=== PATIENT | male | born 1970 | race African-American/Black ===

== ENCOUNTER 2016-10-24 15:49 | Emergency (ER) | payer MEDICAID ==
[~2016-10-24] VITALS: Ht 180.3 cm; Wt 77.1 kg
[2016-10-24 17:11] VITALS: BP 138/70
--- NOTE | 2016-10-24 19:07 | NUR ---
Patient ambulated to [facility] with family to be evaluated by Dr. Fernandes.
--- NOTE | 2016-10-24 19:09 | NUR ---
Dr. Fernandes evaluating patient in [facility].
[2016-10-24] MEDS ORDERED: ALBUTEROL SULFATE/IPRATROPIU 3 ML SOL IH ONE (19:10)
[2016-10-24 19:22] LABS: HEMATOCRIT 43.5 % (36-52); HEMOGLOBIN 14.2 g/dL (12.0-18.0); MEAN CORPUSCULAR HEMOGLOBIN 28 pg (27-31); MEAN CORPUSCULAR HGB CONC 33 g/dL (33-37); MEAN CORPUSCULAR VOLUME 86 fL (80-94); PLATELET COUNT (AUTO) 377 K/uL (140-450); RED BLOOD CELL COUNT(AUTO) 5.08 MIL/uL (4.20-6.10); RED CELL DISTRIBUTION WIDTH 14.8 % (11.6-13.7); WHITE BLOOD COUNT (AUTO) 16.8 K/uL (4.8-10.8)
[2016-10-24 19:34] LABS: ANION GAP 9.2 (8-16); CARBON DIOXIDE 30.9 mmol/L (21-32); POTASSIUM 4.1 mmol/L (3.5-5.1)
[2016-10-24 19:40] LABS: ALBUMIN 3.4 g/dL (3.4-5.0); EOSINOPHILS % (MANUAL) 12 % (0-4); LYMPHOCYTES % (MANUAL) 15 % (20-46); MONOCYTES % (MANUAL) 2 % (5-12); TOTAL BILIRUBIN 0.2 mg/dL (0.0-1.0)
[2016-10-24] MEDS ORDERED: methylPREDNISolone SS 125 MG/2 ML VIAL IM ONE (19:40)
[2016-10-24 20:23] VITALS: BP 148/92
--- NOTE | 2016-10-24 20:23 | NUR ---
Patient discharged with v/s stable. Written and verbal after care instructions given and explained. Patient alert, oriented and verbalized understanding of instructions. Ambulatory with steady gait. All questions addressed prior to discharge. ID band removed. Patient advised to follow up with PMD. Rx of prednisone 20mg, tessalone 100mg tid given. Patient educated on indication of medication including possible reaction and side effects. Opportunity to ask questions provided and answered.
== END 2016-10-24 20:23 | disposition home or self-care (01) ==
LOC: MED 15:49
DX: J18.9 Pneumonia, unspecified organism (principal); J44.1 Chronic obstructive pulmonary disease with (acute) exacerbation; F17.210 Nicotine dependence, cigarettes, uncomplicated
CPT/HCPCS: 36415; 71010; 80053; 85025; 85379; 94640; 94760; 96372; 99285; J2930; J7620

== ENCOUNTER 2017-03-19 09:31 | Emergency (ER) | payer MEDICAID, MEDICARE ==
[~2017-03-19] VITALS: Ht 180.3 cm; Wt 77.3 kg
[2017-03-19 09:37] VITALS: BP 115/61
--- NOTE | 2017-03-19 09:54 | NUR ---
ER MD AT BEDSIDE FOR EXAM
--- NOTE | 2017-03-19 10:05 | NUR ---
RECEIVED PT IN OF 1, PT REPORTS INTERMITTENT COUGH X 1 MONTH, PROGREASSIVELY GETTING WORSE. [id number]-AFN-EVDYAE PHGLEM PER PT. DENIES CP OR SOB, ONLYPAIN WITH COUGH. DENIES FEVERS, BUT OCCASIONAL CHILLS. RESP EVEN AND UNLABORED, ON RA@99%-LS-CLEAR SHALINI.
--- NOTE | 2017-03-19 10:37 | NUR ---
Patient discharged with v/s stable. Written and verbal after care instructions given and explained. Patient alert, oriented and verbalized understanding of instructions. Ambulatory with steady gait. All questions addressed prior to discharge. ID band removed. Patient advised to follow up with PMD. Rx of PREDNISONE, AZITHRONMYCIN, ALBUTEROL given. Patient educated on indication of medication including possible reaction and side effects. Opportunity to ask questions provided and answered.
== END 2017-03-19 10:37 | disposition home or self-care (01) ==
LOC: MED 09:31
DX: J18.9 Pneumonia, unspecified organism (principal); J45.909 Unspecified asthma, uncomplicated; F17.210 Nicotine dependence, cigarettes, uncomplicated
CPT/HCPCS: 71046; 99284; Q0092

== ENCOUNTER 2017-08-18 08:48 | Emergency (ER) | payer OTHER, MEDICARE ==
[~2017-08-18] VITALS: Ht 180.3 cm; Wt 86.2 kg
--- NOTE | 2017-08-18 08:54 | NUR ---
PT AMBULATES TO BED 9
[2017-08-18 08:58] VITALS: BP 121/83
[2017-08-18 09:39] VITALS: BP 121/83
--- NOTE | 2017-08-18 09:40 | NUR ---
Patient discharged with v/s stable. Written and verbal after care instructions given and explained. Patient alert, oriented and verbalized understanding of instructions. Ambulatory with steady gait. All questions addressed prior to discharge. ID band removed. Patient advised to follow up with PMD. Rx of bactrim/keflex/motrin/norco given. Patient educated on indication of medication including possible reaction and side effects. Opportunity to ask questions provided and answered.
== END 2017-08-18 09:40 | disposition home or self-care (01) ==
LOC: MED 08:48
DX: L05.01 Pilonidal cyst with abscess (principal); J45.909 Unspecified asthma, uncomplicated
CPT/HCPCS: 99283

== ENCOUNTER 2019-01-18 09:39 | Emergency (ER) | payer OTHER, BC ==
[~2019-01-18] VITALS: Ht 180.3 cm; Wt 80.8 kg
[2019-01-18 09:46] VITALS: BP 123/94
--- NOTE | 2019-01-18 09:50 | NUR ---
PT AMBULATED TO LOBBY AT THIS TIME, VSS
--- NOTE | 2019-01-18 10:20 | NUR ---
C/O COUGH, CHEST TIGHTNESS, AND BODY ACHES X1 WEEK. BILAT UPPER LOBES CTA, BILAT LOWER BASES DIMISHED/COARSE. O2 SAT RA 94%. BREATHING UNLABORED. MOIST COUGH PRESENT AT THIS TIME. PT ALSO C/O NON PAINFUL MOBILE RAISED LUMP TO BACK OF L SIDE OF NECK THAT HE HAS HAD FOR 10 YEARS BUT STATES IT HAS RECENTLY INCREASED IN SIZE. STATES HE WAS TOLD IT WAS "NON CANCEROUS FATTY TISSUE". AT BEDSIDE. PT PLACED ON BEDSIDE CAR GROOMER. BED IN LOW POSITION. SIDE RAIL UP X1.
[2019-01-18] MEDS: ALBUTEROL SULFATE/IPRATROPIU 3 ML SOL IH ONE ×2 (11:25→12:09)
[2019-01-18 11:40] LABS: HEMATOCRIT 45.3 % (36-52); HEMOGLOBIN 14.8 g/dL (12.0-18.0); MEAN CORPUSCULAR HEMOGLOBIN 29 pg (27-31); MEAN CORPUSCULAR HGB CONC 33 g/dL (33-37); MEAN CORPUSCULAR VOLUME 88.7 fL (80-94); PLATELET COUNT (AUTO) 318 K/uL (140-450); RED BLOOD CELL COUNT(AUTO) 5.11 MIL/uL (4.20-6.10); RED CELL DISTRIBUTION WIDTH 13.3 % (11.6-13.7); WHITE BLOOD COUNT (AUTO) 14.1 K/uL (4.8-10.8)
--- NOTE | 2019-01-18 11:41 | NUR ---
Dr. Fernandes is evaluating the patient at bedside.
[2019-01-18 11:46] LABS: ANION GAP 14.2 (8-16); CARBON DIOXIDE 24.7 mmol/L (21-32); POTASSIUM 3.9 mmol/L (3.5-5.1)
[2019-01-18] MEDS: LEVOFLOXACIN 750 MG/D5W PREMIX 150 ML IV ONE (11:48)
[2019-01-18] MEDS: NACL 0.9% 1,000 ML IV ONE (11:49)
[2019-01-18 11:51] LABS: ALBUMIN 3.5 g/dL (3.4-5.0); TOTAL BILIRUBIN 0.3 mg/dL (0.0-1.0)
[2019-01-18 12:05] LABS: LYMPHOCYTES % (MANUAL) 8 % (20-46); MONOCYTES % (MANUAL) 6 % (5-12)
[2019-01-18 12:06] LABS: BASOPHILS % (MANUAL) 0 % (0-2); EOSINOPHILS % (MANUAL) 26 % (0-4)
--- NOTE | 2019-01-18 12:10 | NUR ---
PT PLACED ON 2LPM NC FOR O2 SAT 90% RA
[2019-01-18] MEDS: methylPREDNISolone SS 125 MG/2 ML VIAL IVP ONE (12:14)
--- NOTE | 2019-01-18 12:18 | NUR ---
Secondary breathing treatment administered by respiratory therapist at bedside.
--- NOTE | 2019-01-18 12:39 | NUR ---
PT WAITING FOR ABX AND IV FLUIDS TO FINISH RUNNING AND THEN WILL BE D/C
[2019-01-18 13:30] VITALS: BP 124/76
--- NOTE | 2019-01-18 13:30 | NUR ---
Patient discharged with v/s stable. Written and verbal after care instructions given and explained. Patient alert, oriented and verbalized understanding of instructions. Ambulatory with steady gait. All questions addressed prior to discharge. ID band removed. Patient advised to follow up with PMD. Rx of PROMETHAZINE WITH CODEINE, ALBUTEROL INH, LEVAQUIN given. Patient educated on indication of medication including possible reaction and side effects. Opportunity to ask questions provided and answered.
== END 2019-01-18 13:30 | disposition home or self-care (01) ==
LOC: MED 09:39
DX: J18.9 Pneumonia, unspecified organism (principal); F17.210 Nicotine dependence, cigarettes, uncomplicated; J45.909 Unspecified asthma, uncomplicated; Z71.6 Tobacco abuse counseling
CPT/HCPCS: 36415; 71046; 80053; 83605; 85025; 87040; 94640; 96365; 96366; 96375; 99284; J1956; J2930; J7620

== ENCOUNTER 2019-03-23 23:16 | Emergency (ER) | payer OTHER, BC ==
[~2019-03-23] VITALS: Ht 180.3 cm; Wt 81.6 kg
[2019-03-23 23:20] VITALS: BP 148/96
--- NOTE | 2019-03-23 23:23 | NUR ---
PT TAKEN TO BED 6
[2019-03-23] MEDS ORDERED: KETOROLAC 60 MG/2 ML VIAL IM ONE (23:25)
--- NOTE | 2019-03-23 23:34 | NUR ---
49 Y/O MALE C/O LT SHOULDER PAIN X 2 WKS WORSENING TODAY. STATES INCREASED PAIN WITH MOVEMENT. +CMS. DENIES TRAUMA TO SHOULDER/ARM. NO DEFORMITIES NOTED. NO SWELLING OR BRUISING TO AREA. SKIN WARM TO THE TOUCH. 10/10 CONSTANT THROBBING PAIN. PT STATES HE TOOK IBUPROFEN AT 2100 WITH NO PAIN RELIEF. PT LAYING IN BED POSITIONED FOR COMFORT. AT BEDSIDE. VSS. MEDHX: DENIES ALLERGIES: NKA
--- NOTE | 2019-03-23 23:47 | NUR ---
X-Ray at bedside.
--- NOTE | 2019-03-24 00:15 | NUR ---
PT STATES DECREASE IN PAIN AFTER TORADOL IM. 07/[address] AVENDANO MADE AWARE
--- NOTE | 2019-03-24 01:00 | NUR ---
RESTING WITH EYES CLOSED, VISIBLE RISE AND FALL OF THE CHEST. AROUSABLE TO NAME. VSS WILL CONTINUE TO MONITOR.
--- NOTE | 2019-03-24 01:23 | NUR ---
Dr. Vera examining patient.
[2019-03-24 01:36] VITALS: BP 133/84
--- NOTE | 2019-03-24 01:36 | NUR ---
Patient discharged with v/s stable. Written and verbal after care instructions given and explained. Patient alert, oriented and verbalized understanding of instructions. Ambulatory with steady gait. All questions addressed prior to discharge. ID band removed. Patient advised to follow up with PMD. Rx of NORCO AND MOTRIN given. Patient educated on indication of medication including possible reaction and side effects. Opportunity to ask questions provided and answered.
== END 2019-03-24 01:36 | disposition home or self-care (01) ==
LOC: MED 23:16
DX: M25.512 Pain in left shoulder (principal); J45.909 Unspecified asthma, uncomplicated; F17.210 Nicotine dependence, cigarettes, uncomplicated
CPT/HCPCS: 73030; 96372; 99283; J1885; Q0092